=== PATIENT | female | born 1980 | race Caucasian/White ===

== ENCOUNTER 2017-10-10 11:11 | Emergency (ER) | payer OTHER ==
[2017-10-10 11:16] VITALS: BMI 31.2
[2017-10-10 11:17] VITALS: BP 114/67; RESP 18; O2SAT 98
--- NOTE | 2017-10-10 12:43 | ED PDOC ---
HPI: General Adult Time Seen by Provider: 10/10/17 11:41 Chief Complaint (Nursing): Flu-like Symptoms Chief Complaint (Provider): Cough, headache, left breast pain History Per: Patient History/Exam Limitations: no limitations Onset/Duration Of Symptoms: Days (3) Have you had recent travel within the past 21 days to any of the following countries: [place], [place], [place] or [place]?: No Current Symptoms Are (Timing): Still Present Additional History Per: Patient Additional Complaint(s): 37yo female, presents to ED with complaints of cough, headache and fever for the pas 3 days. Patient also reports she is breast feeding her 20 month old baby and is complaining of redness and pain to her left breast. She states she has an older child at home with common cold symptoms and feels she may have caught something from them. No other complaints. Past Medical History Reviewed: Historical Data, Nursing Documentation, Vital Signs Vital Signs: Last Vital Signs Temp 98.7 F 10/10/17 13:19 Pulse 116 H 10/10/17 11:16 Resp 18 10/10/17 11:16 BP 114/67 10/10/17 11:16 Pulse Ox 98 10/10/17 12:46 - Medical History PMH: Bronchitis Denies: Chronic Kidney Disease - Surgical History Surgical History: No Surg Hx - Family History Family History: States: No Known Family Hx, Unknown Family Hx - Home Medications Home Medications: Ambulatory Orders Medication Instructions Recorded Vit#96/Ferrous Fum/FA 1 tab PO DAILY 09/24/15 [] Famotidine [Pepcid] 20 mg PO BID #20 tab 04/27/16 Amoxicillin 875 mg PO BID #14 tab 10/10/17 - Allergies Allergies/Adverse Reactions: Allergies Allergy/AdvReac Type Severity Reaction Status Date / Time No Known Allergies Allergy Verified 10/10/17 11:42 Review of Systems ROS Statement: Except As Marked, All Systems Reviewed And Found Negative Constitutional: Positive for: Fever Respiratory: Positive for: Cough Musculoskeletal: Positive for: Other (left breast pain) Neurological: Positive for: Headache Physical Exam - Reviewed Nursing Documentation Reviewed: Yes Vital Signs Reviewed: Yes - Physical Exam Appears: Positive for: Non-toxic, Uncomfortable Head Exam: Positive for: ATRAUMATIC, NORMAL INSPECTION, NORMOCEPHALIC Skin: Positive for: Warm (febrile) Eye Exam: Positive for: Normal appearance ENT: Positive for: Pharyngeal Erythema Neck: Positive for: Supple Cardiovascular/Chest: Positive for: Regular Rate, Rhythm, Other (left breas medial aspect, radiating from areaola, a wedge shaped erythematous region with tenderness to touch; non-indurated.) Respiratory: Positive for: Normal Breath Sounds. Negative for: Respiratory Distress Gastrointestinal/Abdominal: Positive for: Soft. Negative for: Tenderness Neurologic/Psych: Positive for: Alert, Oriented - ECG O2 Sat by Pulse Oximetry: 98 (RA) Pulse Ox Interpretation: Normal Medical Decision Making Medical Decision Making: Time: 1158 Impression: URI, Mastitis Plan: -- Chest x-ray -- Throat culture -- Tylenol 975 mg PO Reassess Scribe Attestation: Documented by Shana Melvin acting as a scribe for Latrice Morrissey MD. Provider Attestation: All medical record entries made by the Scribe were at my direction and personally dictated by me. I have reviewed the chart and agree that the record accurately reflects my personal performance of the history, physical exam, medical decision making, and the department course for this patient. I have also personally directed, reviewed, and agree with the discharge instructions and disposition. Disposition - Clinical Impression Clinical Impression: Mastitis - Patient ED Disposition Is Patient to be Admitted: No Doctor Will See Patient In The: Office Counseled Patient/Family Regarding: Diagnosis, Need For Followup, Rx Given - Disposition Referrals: [facility] [Outside] [facility] [Outside] Disposition: Routine/Home Disposition Time: 13:24 Condition: STABLE Prescriptions: Amoxicillin 875 mg PO BID #14 tab Instructions: Mastitis (ED) Forms: [employer] (Slovenian), [facility] ED School/Work Excuse Print Language: MALAY - POA Present On Arrival: None
[2017-10-10 13:19] VITALS: TEMP 98.7
[2017-10-10 13:38] VITALS: PULSE 90
--- NOTE | 2017-10-10 15:47 | RAD ---
HISTORY: cough COMPARISON: No prior. TECHNIQUE: Chest PA and lateral FINDINGS: LUNGS: No active pulmonary disease. PLEURA: No significant pleural effusion identified. No pneumothorax apparent. CARDIOVASCULAR: Normal. OSSEOUS STRUCTURES: No significant abnormalities. VISUALIZED UPPER ABDOMEN: Normal. OTHER FINDINGS: None. IMPRESSION: No active disease.
== END 2017-10-10 13:52 | disposition home or self-care (01) ==
LOC: H.ER 11:11
DX: N64.4 Mastodynia (principal); J06.9 Acute upper respiratory infection, unspecified

== ENCOUNTER 2018-08-14 04:42 | Emergency (ER) | payer MEDICAID, OTHER ==
[2018-08-14 04:42] VITALS: BMI 31.2
--- NOTE | 2018-08-14 05:45 | ED PDOC ---
HPI: Abdomen Time Seen by Provider: 08/14/18 05:33 Chief Complaint (Nursing): Abdominal Pain Chief Complaint (Provider): abdominal pain History Per: Patient History/Exam Limitations: no limitations Onset/Duration Of Symptoms: Hrs (yesterday evening) Current Symptoms Are (Timing): Still Present Location Of Pain/Discomfort: Epigastric Quality Of Discomfort: Burning Associated Symptoms: denies: Fever, Chills, Urinary Symptoms Additional Complaint(s): Zandra Prater is a 38 year old female, with no significant past medical history, who presents to the emergency department complaining of constant non radiating epigastric pain onset since yesterday evening after she had pizza. Patient states she developed pain shortly after and reports having epigastric pain intermittently for several months, sometimes when she eats food. Patient also reports vomiting, non bloody and non bilious, intermittently and non bloody diarrhea which she has had for a long time. She denies any fever, chills, urina ry problems or bloody stools. Patient hasn't seen a doctor or specialist for this pain stating she comes to ED whenever she has pain. When asked if she has a PMD she reports a doctor in the ER. PMD: None Past Medical History Reviewed: Historical Data, Nursing Documentation, Vital Signs Vital Signs: Last Vital Signs Temp 98.7 F 08/14/18 05:02 Pulse 60 08/14/18 05:02 Resp 14 08/14/18 05:02 BP 103/66 08/14/18 05:02 Pulse Ox 99 08/14/18 05:02 - Medical History PMH: No Chronic Diseases, Bronchitis Denies: Chronic Kidney Disease - Surgical History Surgical History: No Surg Hx - Family History Family History: States: Unknown Family Hx - Social History Alcohol: None - Home Medications Home Medications: Ambulatory Orders Medication Instructions Recorded Vits96/Iron Fum/Folic 1 tab PO DAILY 09/24/15 [] Famotidine [Pepcid] 20 mg PO BID #20 tab 04/27/16 RX: Amoxicillin 875 mg PO BID #14 tab 10/10/17 Famotidine [Pepcid] 20 mg PO BID #28 tab 08/14/18 - Allergies Allergies/Adverse Reactions: Allergies Allergy/AdvReac Type Severity Reaction Status Date / Time No Known Allergies Allergy Verified 10/10/17 11:42 Review of Systems ROS Statement: Except As Marked, All Systems Reviewed And Found Negative Constitutional: Negative for: Fever, Chills Gastrointestinal: Positive for: Vomiting, Abdominal Pain (epigastric), Diarrhea. Negative for: Hematochezia Genitourinary Female: Negative for: Dysuria, Frequency, Hematuria, Vaginal Discharge, Vaginal Bleeding Physical Exam - Reviewed Nursing Documentation Reviewed: Yes Vital Signs Reviewed: Yes - Physical Exam Appears: Positive for: No Acute Distress Head Exam: Positive for: ATRAUMATIC, NORMAL INSPECTION, NORMOCEPHALIC Skin: Positive for: Normal Color, Warm, Dry Eye Exam: Positive for: Normal appearance, EOMI, PERRL Neck: Positive for: Painless ROM Cardiovascular/Chest: Positive for: Regular Rate, Rhythm. Negative for: Murmur Respiratory: Positive for: Normal Breath Sounds. Negative for: Respiratory Distress Gastrointestinal/Abdominal: Positive for: Tenderness (epigastric). Negative for: Distended Back: Positive for: Normal Inspection. Negative for: Vertebral Tenderness Extremity: Positive for: Normal ROM (upper and lower extremities). Negative for: Deformity, Swelling Neurologic/Psych: Positive for: Alert, Oriented - Laboratory Results Result Diagrams: 08/14/18 06:25 08/14/18 06:25 - ECG O2 Sat by Pulse Oximetry: 99 (RA) Pulse Ox Interpretation: Normal Medical Decision Making Medical Decision Making: Time: 05:33 Initial Impression: Abdominal pain with vomiting and diarrhea. Differential diagnosis includes gastritis, peptic ulcer disease, gallbladder disease, gastroenteritis, colitis and other conditions not listed. Initial Plan: --Abd & Pelvis IV Contrast [CT] --CMP --Lipase --Urine --Urine dipstick --CBC w/ differential --Lidocaine 2% Viscous 15 ml PO --Maalox Plus 30 ml PO --Pepcid 20 mg IVP --Reevaluation Scribe Attestation: Documented by Teddy Mckinney, acting as a scribe for Alee Luke MD. Provider Scribe Attestation: All medical record entries made by the Scribe were at my direction and personally dictated by me. I have reviewed the chart and agree that the record accurately reflects my personal performance of the history, physical exam, medical decision making, and the department course for this patient. I have also personally directed, reviewed, and agree with the discharge instructions and disposition. Disposition - Clinical Impression Clinical Impression: Gastritis, Cholelithiasis - Patient ED Disposition Is Patient to be Admitted: Transfer of Care Counseled Patient/Family Regarding: Studies Performed, Diagnosis, Need For Followup - Disposition Referrals: [facility] [Outside] [facility] [Outside] Disposition: Transfer of Care Disposition Time: 07:00 Condition: STABLE Prescriptions: Famotidine [Pepcid] 20 mg PO BID #28 tab Instructions: Gastritis, Gallstones Forms: [employer] (Guatemalan), [facility] ED School/Work Excuse Print Language: FRISIAN Patient Signed Over To: Hattie Santoyo
[2018-08-14] MEDS ORDERED: Alum-Mag Hydrox-Simethicone Susp (30 mL) PO ONE (05:48)
[2018-08-14] MEDS ORDERED: Alum-Mag Hydrox-Simethicone Susp (30 mL) ONE (05:57)
[2018-08-14 06:29] LABS: BASO % 0.5 % (0.0-2.0); EOS # 0.1 K/uL (0.0-0.7); EOS % 1.1 % (0.0-4.0); HEMOGLOBIN 13.5 g/dL (12.0-16.0); LYMPH # 2.5 K/uL (1.0-4.3); MEAN CELL VOLUME 91.1 fl (81.0-99.0); MEAN CORPUSCULAR HEMOGLOBIN 31.2 pg (27.0-31.0); MEAN CORPUSCULAR HGB CONC 34.2 g/dL (33.0-37.0); MEAN PLATELET VOLUME 8.2 fl (7.2-11.7); MONO # 0.6 K/uL (0.0-0.8); MONO % 6.1 % (0.0-10.0); NEUT # 6.3 K/uL (1.8-7.0); NEUT % 66.3 % (50.0-75.0); RBC 4.33 Mil/uL (3.80-5.20); RED CELL DISTRIBUTION WIDTH 13.2 % (11.5-14.5); WHITE BLOOD COUNT 9.5 K/uL (4.8-10.8)
[2018-08-14 06:39] LABS: ALB/GLOB RATIO 1.2 (1.0-2.1); ALBUMIN 4.6 g/dL (3.5-5.0); ALT/SGPT 28 U/L (9-52); AST/SGOT 27 U/L (14-36); BLOOD UREA NITROGEN 16 mg/dl (7-17); CALCIUM 9.5 mg/dL (8.4-10.2); GFR NON-AFRICAN AMERICAN > 60; LIPASE 182 U/L (23-300)
[2018-08-14] MEDS ORDERED: Iohexol 300 100 ML IJ ONE (07:36)
[2018-08-14] MEDS ORDERED: Sodium Chloride 0.9% 50 ML IV ONE (07:37)
--- NOTE | 2018-08-14 09:06 | CT ---
Date of service: 08/14/2018 PROCEDURE: CT Abdomen and Pelvis with contrast HISTORY: epigastric pain COMPARISON: Comparison is made with 04/27/2016 TECHNIQUE: Contrast dose: 100 mL of Omnipaque 300 intravenously. Axial and reformatted coronal and sagittal CT images of the abdomen and pelvis were obtained after IV contrast administration. Radiation dose: Total exam DLP = 344.65 mGy-cm. This CT exam was performed using one or more of the following dose reduction techniques: Automated exposure control, adjustment of the mA and/or kV according to patient size, and/or use of iterative reconstruction technique. FINDINGS: LOWER THORAX: Unremarkable. LIVER: Slight heterogeneous enhancement of the liver is noted. Mild hepatomegaly and mild hepatic steatosis is again noted. The portal vein is patent. GALLBLADDER AND BILE DUCTS: Tubal gallstones are noted without evidence of acute cholecystitis. The common bile duct is slightly prominent in size. PANCREAS: Unremarkable. No gross lesion or ductal dilatation. SPLEEN: Unremarkable. ADRENALS: Unremarkable. No mass. KIDNEYS AND URETERS: Unremarkable. No hydronephrosis. No solid mass. VASCULATURE: Unremarkable. No aortic aneurysm. BOWEL: Mild gastric wall thickening is noted. No evidence of high-grade bowel obstruction. APPENDIX: No evidence PERITONEUM: Of appendicitis. LYMPH NODES: Unremarkable. No enlarged lymph nodes. BLADDER: Unremarkable. REPRODUCTIVE: Unremarkable. BONES: No acute fracture. OTHER FINDINGS: None. IMPRESSION: Cholelithiasis without evidence of acute cholecystitis. Mild gastric mucosal thickening. No evidence of pancreatitis or appendicitis.
--- NOTE | 2018-08-14 09:58 | ED PDOC ---
- Laboratory Results Result Diagrams: 08/14/18 06:25 08/14/18 06:25 - ECG O2 Sat by Pulse Oximetry: 97 Medical Decision Making Medical Decision Making: received patient from Dr. Garcia. Patient is feeling better. CT-scan results reviewed and discussed with patient. She will initiate followup at the [facility]. Disposition Doctor Will See Patient In The: Office Counseled Patient/Family Regarding: Diagnosis, Need For Followup, Rx Given - Clinical Impression Clinical Impression: Gastritis, Cholelithiasis - POA Present On Arrival: None - Disposition Referrals: [facility] [Outside] [facility] [Outside] Disposition: Routine/Home Disposition Time: 09:30 Condition: IMPROVED Prescriptions: Famotidine [Pepcid] 20 mg PO BID #28 tab Instructions: Gastritis, Gallstones Forms: [employer] (Faroese) Print Language: GERMAN
[2018-08-14 10:14] VITALS: BP 105/58; PULSE 78; RESP 18; TEMP 98.6
[2018-08-15 20:12] VITALS: O2SAT 99
== END 2018-08-14 10:15 | disposition home or self-care (01) ==
LOC: H.ER 04:42
DX: K29.70 Gastritis, unspecified, without bleeding (principal); K80.20 Calculus of gallbladder without cholecystitis without obstruction
CPT/HCPCS: 74177; 80053; 81025; 83690; 85025; 96374; 99283; Q9967

== ENCOUNTER 2018-09-05 13:33 | Emergency (ER) | payer OTHER ==
[2018-09-05 13:33] VITALS: BMI 31.2
[2018-09-05 13:55] VITALS: RESP 16; O2SAT 99
[2018-09-05 16:28] LABS: BASO # 0.1 K/uL (0.0-0.2); BASO % 0.6 % (0.0-2.0); EOS # 0.1 K/uL (0.0-0.7); EOS % 0.7 % (0.0-4.0); HEMOGLOBIN 12.7 g/dL (12.0-16.0); LYMPH # 3.1 K/uL (1.0-4.3); LYMPH % 27.2 % (20.0-40.0); MEAN CELL VOLUME 90.3 fl (81.0-99.0); MEAN CORPUSCULAR HEMOGLOBIN 29.9 pg (27.0-31.0); MEAN CORPUSCULAR HGB CONC 33.1 g/dL (33.0-37.0); MEAN PLATELET VOLUME 7.8 fl (7.2-11.7); MONO # 0.7 K/uL (0.0-0.8); MONO % 5.9 % (0.0-10.0); NEUT # 7.6 K/uL (1.8-7.0); NEUT % 65.6 % (50.0-75.0); RBC 4.24 Mil/uL (3.80-5.20); RED CELL DISTRIBUTION WIDTH 13.1 % (11.5-14.5); WHITE BLOOD COUNT 11.6 K/uL (4.8-10.8)
[2018-09-05 16:38] LABS: SQUAMOUS EPITHIAL < 1 /hpf (0-5); URINE BACTERIA OCC (<OCC); URINE BILIRUBIN NEGATIVE (NEGATIVE); URINE CLARITY SLIGHTY-CLOUDY (Clear); URINE COLOR YELLOW (YELLOW); URINE GLUCOSE (UA) NEG (Normal); URINE LEUKOCYTE ESTERASE NEG Leu/uL (Negative); URINE PROTEIN NEGATIVE (NEGATIVE); URINE UROBILINOGEN 0.2-1.0 mg/dL (0.2-1.0)
[2018-09-05 16:39] LABS: ALB/GLOB RATIO 1.3 (1.0-2.1)
[2018-09-05 16:40] LABS: ALBUMIN 4.7 g/dL (3.5-5.0); ALT/SGPT 24 U/L (9-52); AST/SGOT 25 U/L (14-36); BLOOD UREA NITROGEN 14 mg/dl (7-17); CALCIUM 9.4 mg/dL (8.4-10.2); GFR NON-AFRICAN AMERICAN > 60
[2018-09-05 16:43] LABS: URINE BLOOD SMALL (NEGATIVE)
--- NOTE | 2018-09-05 17:14 | ED PDOC ---
HPI: Female Pain Time Seen by Provider: 09/05/18 14:44 Chief Complaint (Nursing): Female Genitourinary Chief Complaint (Provider): Female Genitourinary History Per: Patient History/Exam Limitations: no limitations Onset/Duration Of Symptoms: Other (x2 weeks) Additional Complaint(s): 38 year old female, with a past medical history of left ovarian dermoid cyst and is , presents to the ED after clinic visit for left lower quadrant abdominal pain. Patient states she had constant lower abdominal pain for the past 2 weeks. (+) dysuria, urinary frequency, malodorous vaginal discharge, mild dyspareunia. (-) nausea, vomiting, diarrhea. States she has 1 partner who is her . Patient reports she went to the clinic to follow up for a prior ED visit for epigastric pain. A pelvic exam was performed and was told she had a "mass" so needed to go to the ER for further evaluation. She was also told that she appeared to have an infection that needed antibiotics. Per review of clinic visit note, pelvic exam was performed and showed a small amount of slightly yellow discharge in the vagina with thin white discharge in cervix and a left adnexal mass distinct on exam and no tenderness on the right. She was referred to ED for further evaluation of possible tubo-ovarian abscess and treatment of possible pelvic inflammatory disease. PMD: Gerald Hinson Past Medical History Reviewed: Historical Data, Nursing Documentation, Vital Signs Vital Signs: Last Vital Signs Temp 99.4 F 09/05/18 13:53 Pulse 72 09/05/18 13:53 Resp 16 09/05/18 13:53 BP 104/69 09/05/18 13:53 Pulse Ox 99 09/05/18 13:53 - Medical History PMH: Bronchitis Denies: Chronic Kidney Disease Other PMH: Left dermoid cyst - Surgical History Surgical History: No Surg Hx - Family History Family History: States: Unknown Family Hx - Home Medications Home Medications: Ambulatory Orders Medication Instructions Recorded Vits96/Iron Fum/Folic 1 tab PO DAILY 09/24/15 [] Famotidine [Pepcid] 20 mg PO BID #20 tab 04/27/16 Amoxicillin 875 mg PO BID #14 tab 10/10/17 Famotidine [Pepcid] 20 mg PO BID #28 tab 08/14/18 Azithromycin 1,000 mg PO QWK #2 tablet 09/05/18 metroNIDAZOLE 0.75% [Metrogel 1 ea TP DAILY 5 Days tube 09/05/18 Cream] - Allergies Allergies/Adverse Reactions: Allergies Allergy/AdvReac Type Severity Reaction Status Date / Time No Known Allergies Allergy Verified 09/05/18 13:53 Review of Systems ROS Statement: Except As Marked, All Systems Reviewed And Found Negative Gastrointestinal: Positive for: Abdominal Pain (Left lower). Negative for: Nausea, Vomiting, Diarrhea Genitourinary Female: Positive for: Dysuria, Frequency, Vaginal Discharge Physical Exam - Reviewed Nursing Documentation Reviewed: Yes Vital Signs Reviewed: Yes - Physical Exam Appears: Positive for: Non-toxic, No Acute Distress Head Exam: Positive for: ATRAUMATIC, NORMAL INSPECTION, NORMOCEPHALIC Skin: Positive for: Normal Color, Warm, Dry Eye Exam: Positive for: Normal appearance Neck: Positive for: Normal, Painless ROM Cardiovascular/Chest: Positive for: Regular Rate, Rhythm. Negative for: Murmur Respiratory: Positive for: Normal Breath Sounds. Negative for: Wheezing, Respiratory Distress Gastrointestinal/Abdominal: Positive for: Normal Exam, Soft. Negative for: Tenderness Pelvic Exam: Positive for: Other (Deferred as patient had pelvic exam today in clinic) Extremity: Positive for: Normal ROM Neurologic/Psych: Positive for: Alert, Oriented. Negative for: Motor/Sensory Deficits - Laboratory Results Result Diagrams: 09/05/18 16:22 09/05/18 16:22 - ECG O2 Sat by Pulse Oximetry: 99 (RA) Pulse Ox Interpretation: Normal Medical Decision Making Medical Decision Making: Initial Impression: Abdominal Pain Initial Plan: --CMP --ED urine --CBC --Urinalysis --Pelvis/transvaginal US to r/o ovarian abscess Scribe Attestation: Documented by Gómez Bennett acting as a scribe for Ashlye Lonnie-Jag PA. Provider Scribe Attestation: All medical record entries made by the Scribe were at my direction and personally dictated by me. I have reviewed the chart and agree that the record accurately reflects my personal performance of the history, physical exam, medical decision making, and the department course for this patient. I have also personally directed, reviewed, and agree with the discharge instructions and disposition. Pelvic ultrasound: LEft ovary is not noted c/w hx of LEft oophorectomy. Otherwise unremarkable study as above Urinalysis shows moderate nitrate but no LE. Urine culture ordered. Case d/w DRAFTER ASSISTANT given need for antibiotics and patient is currently exclusively . Patient to receive Rocephin 250mg IM x 1 and prescription for Azithromycin 1G PO weekly x 2 weeks as well as Metronidazole gel rather than PO. Disposition - Clinical Impression Clinical Impression: Pelvic inflammatory disease (PID), Bacterial vaginosis - Patient ED Disposition Is Patient to be Admitted: No Counseled Patient/Family Regarding: Studies Performed, Diagnosis, Need For Followup, Rx Given - Disposition Referrals: [facility] [Outside] Disposition: Routine/Home Disposition Time: 19:32 Condition: STABLE Additional Instructions: Refrain from sexual contact for the next 2 weeks. F/u with your primary care physician if symptoms worsen or persist despite therapy. Prescriptions: Azithromycin 1,000 mg PO QWK #2 tablet metroNIDAZOLE 0.75% [Metrogel Cream] 1 ea TP DAILY 5 Days tube Instructions: Pelvic Inflammatory Disease (DC) Forms: [employer] ([place]), [facility] ED School/Work Excuse Print Language: CHINESE
--- NOTE | 2018-09-05 18:37 | US ---
Date of service: 09/05/2018 HISTORY: L>R pelvic pain COMPARISON: CT abdomen pelvis with IV contrast performed 08/14/18 TECHNIQUE: Real-time transabdominal pelvic ultrasound was performed. In addition a transvaginal pelvic ultrasound was necessary to better depict pelvic anatomy. FINDINGS: UTERUS: Measures 7.5 x 4.1 x 3.0 cm. Anteverted. ENDOMETRIUM: Measures 4 mm in diameter. CERVIX: No cervical abnormality identified. RIGHT OVARY: Measures 2.4 x 2.5 x 1.1 cm. Blood flow is demonstrated. 6 mm follicle. LEFT OVARY: Left ovary is not identified. Provided history indicates left oophorectomy. FREE FLUID: No significant free fluid noted. OTHER FINDINGS: None. IMPRESSION: The left ovary is not identified consistent with provided history of oophorectomy. Otherwise unremarkable study as above.
[2018-09-05] MEDS ORDERED: cefTRIAXone (Rocephin) 250 mg Inj IM ONE (19:05)
[2018-09-05] MEDS ORDERED: cefTRIAXone (Rocephin) 250 mg Inj ONE (20:09)
[2018-09-05 20:25] VITALS: BP 138/81; PULSE 73; TEMP 98.7
== END 2018-09-05 20:20 | disposition home or self-care (01) ==
LOC: H.ER 13:33
DX: N73.9 Female pelvic inflammatory disease, unspecified (principal); B96.89 Other specified bacterial agents as the cause of diseases classified elsewhere; N76.0 Acute vaginitis; Z90.721 Acquired absence of ovaries, unilateral
CPT/HCPCS: 76830; 76856; 80053; 81003; 81025; 85025; 87086; 96372; 99283; J0696

== ENCOUNTER 2018-12-28 15:22 | Inpatient (IN) | payer OTHER ==
[2018-12-28 15:22] VITALS: BMI 31.2
--- NOTE | 2018-12-28 16:15 | ED PDOC ---
HPI: Abdomen Time Seen by Provider: 12/28/18 15:42 Chief Complaint (Nursing): Abdominal Pain Chief Complaint (Provider): Abdominal Pain History Per: Patient History/Exam Limitations: no limitations Onset/Duration Of Symptoms: Days (x3) Current Symptoms Are (Timing): Still Present Location Of Pain/Discomfort: RUQ, Epigastric Quality Of Discomfort: "Pain" Associated Symptoms: Fever (subjective), Chills, Nausea, Loss Of Appetite, Back Pain, Constipation (mild). denies: Vomiting Additional Complaint(s): 38 year old female who recently underwent cholecystectomyon 12/25/18 and is post op x3 days presents to the ED with abdominal pain. Patient reports that despite the surgery, pain is persistent and worsening. She described RUQ and epigastric pain that radiates to her back. Patient has no appetite and has been feeling subjective fevers, chills, body aches, nausea and mild constip ation. She denies any vomiting, black or bloody stools. Patient has been taking Tylenol with no relief. PMD: Clinic Past Medical History Reviewed: Historical Data, Nursing Documentation, Vital Signs Vital Signs: Last Vital Signs Temp 99.5 F 12/28/18 15:36 Pulse 88 12/28/18 15:36 Resp 16 12/28/18 15:36 BP 117/59 L 12/28/18 15:36 Pulse Ox 100 12/28/18 15:36 - Medical History PMH: Bronchitis, Gastritis, Gall Bladder Disease Denies: Chronic Kidney Disease - Surgical History Surgical History: Cholecystectomy (12/25/18 ) Other surgeries: left ovarian cyst resection - Family History Family History: States: Other Other Family History: leukemia - Social History Current smoker - smoking cessation education provided: No Ex-Smoker (has not smoked in the last 12 months): No Alcohol: None Drugs: Denies - Home Medications Home Medications: Ambulatory Orders Medication Instructions Recorded Acetaminophen [Tylenol] 650 mg PO Q6 PRN 12/28/18 Ibuprofen [Motrin Tab] 400 mg PO Q8 PRN 12/28/18 - Allergies Allergies/Adverse Reactions: Allergies Allergy/AdvReac Type Severity Reaction Status Date / Time No Known Allergies Allergy Verified 12/28/18 15:36 Review of Systems ROS Statement: Except As Marked, All Systems Reviewed And Found Negative Constitutional: Positive for: Fever (subjective), Chills Gastrointestinal: Positive for: Nausea, Abdominal Pain, Constipation (mild). Negative for: Vomiting, Hematochezia Musculoskeletal: Positive for: Back Pain Physical Exam - Reviewed Nursing Documentation Reviewed: Yes Vital Signs Reviewed: Yes - Physical Exam Appears: Positive for: In Acute Distress (painful) Head Exam: Positive for: ATRAUMATIC, NORMOCEPHALIC Skin: Positive for: Warm, Dry, Pallor Eye Exam: Positive for: EOMI, PERRL ENT: Positive for: Other (tacky mucous membranes) Neck: Positive for: Painless ROM, Supple Cardiovascular/Chest: Positive for: Regular Rate, Rhythm. Negative for: Murmur Respiratory: Positive for: Normal Breath Sounds. Negative for: Respiratory Distress Gastrointestinal/Abdominal: Positive for: Soft, Tenderness (RUQ and epigastric), Other (3 surgical scars RUQ, epigastric, and umbilical. Clean, dry, and intact with no erythema.). Negative for: Mass, Guarding, Rebound Back: Positive for: Normal Inspection. Negative for: L CVA Tenderness, R CVA Tenderness Extremity: Positive for: Normal ROM. Negative for: Deformity Lymphatic: Negative for: Adenopathy Neurologic/Psych: Positive for: Alert, Mood/Affect (normal mood and anxious affect). Negative for: Motor/Sensory Deficits - Laboratory Results Result Diagrams: 12/28/18 16:15 12/28/18 16:15 - ECG O2 Sat by Pulse Oximetry: 100 (RA) Pulse Ox Interpretation: Normal Medical Decision Making Medical Decision Making: Time: 1555 Impression: abdominal pain post cholecystectomy; post op day 3 Differential diagnoses include but are not limited to: abdominal abscess, sepsis, gastritis, and pancreatitis. Plan: --CMP --Lactic acid --LDH --Lipase --U preg --u dip --CBC --PTT --PT/INR --Morphine 4 mg IVP --Zofran 4 mg IVP --Blood culture Time: 1729 --residential sales executive, Soledad, called back, who reports that he needs to talk to his senior for recommendations on imaging. He will call back. Labs demonstrate m ardkedly deranged LFTs, CT scan ordered. Time: 1820 --Case discussed with certified ophthalmic surgical assistant. She recommends admission and US. Discussed with Dr. Garcia, hospitalist, for admission. Time: 1833 --Case discussed again with certified ophthalmic surgical assistant. Patient to be admitted to Dr. Joy, surgery service. Case discussed with ANSELMO Aquino. Scribe Attestation: Documented by Rose Bennett, acting as a scribe for Amy Metcalf MD. Provider Scribe Attestation: All medical record entries made by the Scribe were at my direction and personally dictated by me. I have reviewed the chart and agree that the record accurately reflects my personal performance of the history, physical exam, medical decision making, and the department course for this patient. I have also personally directed, reviewed, and agree with the discharge instructions and disposition. Disposition - Clinical Impression Clinical Impression: Abdominal pain, Cholangitis Counseled Patient/Family Regarding: Studies Performed, Diagnosis - Disposition Disposition Time: 18:00 Condition: FAIR - Pt Status Changed To: Hospital Disposition Of: Inpatient - Admit Certification Admit to Inpatient:: After my assessment, the patient will require hospitalization for at least two midnights. This is because of the severity of symptoms shown, intensity of services needed, and/or the medical risk in this patient being treated as an outpatient. - POA Present On Arrival: None
[2018-12-28] MEDS ORDERED: Morphine 4 MG/ML VIAL ONE (16:38)
[2018-12-28 17:07] LABS: BASO % 0.3 % (0.0-2.0); EOS # 0.2 K/uL (0.0-0.7); EOS % 2.2 % (0.0-4.0); HEMOGLOBIN 12.8 g/dL (12.0-16.0); MEAN CELL VOLUME 91.3 fl (81.0-99.0); MEAN CORPUSCULAR HEMOGLOBIN 30.9 pg (27.0-31.0); MEAN CORPUSCULAR HGB CONC 33.9 g/dL (33.0-37.0); MEAN PLATELET VOLUME 8.4 fl (7.2-11.7); MONO # 0.6 K/uL (0.0-0.8); NEUT # 5.5 K/uL (1.8-7.0); NEUT % 66.5 % (50.0-75.0); RBC 4.13 Mil/uL (3.80-5.20); WHITE BLOOD COUNT 8.3 K/uL (4.8-10.8)
[2018-12-28 17:12] LABS: INR 1.1; PROTHROMBIN TIME 12.8 Seconds (9.8-13.1)
[2018-12-28 17:15] LABS: PARTIAL THROMBOPLASTIN TIME 35.5 Seconds (25.6-37.1)
[2018-12-28 17:23] LABS: ALB/GLOB RATIO 1.3 (1.0-2.1); ALBUMIN 4.8 g/dL (3.5-5.0); ALT/SGPT 903 U/L (9-52); AST/SGOT 445 U/L (14-36); BLOOD UREA NITROGEN 11 mg/dl (7-17); CALCIUM 9.9 mg/dL (8.4-10.2); GFR NON-AFRICAN AMERICAN > 60; LIPASE 166 U/L (23-300)
[2018-12-28] MEDS ORDERED: Piperacillin/Tazobact 3.375 GM in Sodium Chloride 0.9% 100 ML IVPB STA (17:42)
[2018-12-28 17:47] LABS: SQUAMOUS EPITHIAL < 1 /hpf (0-5); URINE BILIRUBIN NEGATIVE (NEGATIVE); URINE BLOOD MODERATE (NEGATIVE); URINE CLARITY SLIGHTY-CLOUDY (Clear); URINE COLOR YELLOW (YELLOW); URINE GLUCOSE (UA) NEG (NEGATIVE); URINE LEUKOCYTE ESTERASE NEG Leu/uL (Negative); URINE PROTEIN NEGATIVE (NEGATIVE)
[2018-12-28] MEDS ORDERED: Sodium Chloride 0.9% 50 ML IV ONE (18:18)
[2018-12-28] MEDS ORDERED: Iohexol 300 100 ML IJ ONE (18:18)
[2018-12-28] MEDS ORDERED: Piperacillin/Tazobact 3.375 gm Inj IVPB ONE (18:20)
--- NOTE | 2018-12-28 19:10 | CT ---
Date of service: 12/28/2018 PROCEDURE: CT Abdomen and Pelvis with contrast HISTORY: pain and postop day 3 cholecystectomy COMPARISON: 12/25/2018 TECHNIQUE: Contrast dose: 90 mL Omnipaque 300 Radiation dose: Total exam DLP = 330.38 mGy-cm. This CT exam was performed using one or more of the following dose reduction techniques: Automated exposure control, adjustment of the mA and/or kV according to patient size, and/or use of iterative reconstruction technique. FINDINGS: LOWER THORAX: Bilateral dependent lower lobe subsegmental atelectasis. LIVER: Unremarkable. No gross lesion or ductal dilatation. GALLBLADDER AND BILE DUCTS: Status post cholecystectomy. Surgical clips in gallbladder fossa. Small amount of fluid/soft tissue density in the gallbladder fossa. Mild dilatation of the common bile duct up to approximately 9 mm diameter. This is increased when compared to the prior examination. In the distal common bile duct there are questionable tiny calculi appreciated. These can be seen on series 3, image 58 and 59 and on series 601, image 40. These may represent common duct stones. In addition, there is a tubular fluid collection seen in the jacky hepatis region containing several small calculi. This is seen on series 601, image 38 and series 3, image 48. This may represent a calculus within a cystic duct remnant. PANCREAS: Unremarkable. No gross lesion or ductal dilatation. SPLEEN: Unremarkable. ADRENALS: Unremarkable. No mass. KIDNEYS AND URETERS: Unremarkable. No hydronephrosis. No solid mass. VASCULATURE: Unremarkable. No aortic aneurysm. No aortic atherosclerotic calcification or mural plaque present. BOWEL: Unremarkable. No obstruction. No gross mural thickening. APPENDIX: Normal appendix. PERITONEUM: Small amount of fluid in cul-de-sac common nonspecific. No pneumoperitoneum. LYMPH NODES: Unremarkable. No enlarged lymph nodes. BLADDER: Unremarkable. REPRODUCTIVE: Normal uterus BONES: No acute fracture. OTHER FINDINGS: None. IMPRESSION: Mild dilatation of the common bile duct. Questionable tiny distal common bile duct calculi. Questionable calculus within a tubular fluid-filled structure in the jacky hepatis region. Possible calculus within the cystic duct remnant. Minimal fluid in cul-de-sac. No evidence of postoperative bile collection.
[2018-12-28] MEDS ORDERED: HYDROmorphone 0.5 mg/0.5 ml ISec IVP PRN (19:15)
[2018-12-28] MEDS: Lactated Ringer's 1,000 ML IV SCH (20:33)
--- NOTE | 2018-12-28 21:00 | CP.PCM.HP ---
<Delmy Sandhu - Last Filed: 12/28/18 21:02> History of Present Illness - History of Present Illness History of Present Illness: Surgery: Dr. Joy CC: abdominal pain HPI: Patient is a 38 y/o female who presents to the ER complaining of epigastric and RUQ abdominal pain that has been present since her surgery 3 days ago. Patient had undergone laparoscopic cholecystectomy on Monday 12/25 for acute cholecystitis. Patient states that the pain radiates to her right flank and is not relieved by tylenol. She reports associated nausea but denies vomiting. She states her appetite has been poor but can tolerate po intake. She reports chills and subjective fevers at home. She reports flatus but complains of hard stools and constipation. Denies tarry or bloody stools. PMH: cholelithiasis, gastritis PSH: Lap L. oopherectomy (01/2015), Lap criss 12/25/18 ALL: NKDA SocialHx: denies tobacco, etoh, drug use Present on Admission - Present on Admission Any Indicators Present on Admission: No Review of Systems - Constitutional Constitutional: Chills. absent: Anorexia - EENT Eyes: absent: Blind Spots, Blurred Vision Nose/Mouth/Throat: Neck Pain. absent: Throat Swelling - Cardiovascular Cardiovascular: Chest Pain. absent: Dyspnea - Respiratory Respiratory: absent: Cough, Chest Congestion - Gastrointestinal Gastrointestinal: Abdominal Pain, Bloating, Constipation, Excessive Flatus, Nausea. absent: Diarrhea, Hematemesis, Vomiting - Genitourinary Genitourinary: Flank Pain. absent: Change in Urinary Stream, Hematuria, Urinary Frequency, Urinary Urgency - Musculoskeletal Musculoskeletal: absent: Arthralgias, Deformity - Integumentary Integumentary: absent: Wounds, Jaundice - Neurological Neurological: absent: Tingling, Weakness - Endocrine Endocrine: absent: Polyphagia, Polyuria - Hematologic/Lymphatic Hematologic: absent: Easy Bleeding, Easy Bruising Past Patient History - Infectious Disease Hx of Infectious Diseases: None - Past Medical History & Family History Past Medical History?: Yes Past Family History: Reviewed and not pertinent - Past Social History Alcohol: None Drugs: Denies - CARDIAC Hx Cardiac Disorders: No - PULMONARY Hx Bronchitis: Yes - NEUROLOGICAL Hx Neurological Disorder: No - HEENT Hx HEENT Problems: No - RENAL Hx Chronic Kidney Disease: No - ENDOCRINE/METABOLIC Hx Endocrine Disorders: No - HEMATOLOGICAL/ONCOLOGICAL Hx Blood Disorders: No - INTEGUMENTARY Hx Dermatological Problems: No - MUSCULOSKELETAL/RHEUMATOLOGICAL Hx Musculoskeletal Disorders: No - GASTROINTESTINAL Hx Gall Bladder Disease: Yes Hx Gastritis: Yes - GENITOURINARY/GYNECOLOGICAL Hx Genitourinary Disorders: No - PSYCHIATRIC Hx Psychophysiologic Disorder: No Hx Substance Use: No - SURGICAL HISTORY Hx Cholecystectomy: Yes (12/25/18 ) - ANESTHESIA Hx Anesthesia: No Hx Anesthesia Reactions: No Hx Malignant Hyperthermia: No Meds Allergies/Adverse Reactions: Allergies Allergy/AdvReac Type Severity Reaction Status Date / Time No Known Allergies Allergy Verified 12/28/18 15:36 Physical Exam - Constitutional Appears: Non-toxic, No Acute Distress - Head Exam Head Exam: ATRAUMATIC, NORMOCEPHALIC - Eye Exam Eye Exam: EOMI, Normal appearance. absent: Scleral icterus - ENT Exam ENT Exam: Mucous Membranes Moist - Respiratory Exam Respiratory Exam: NORMAL BREATHING PATTERN. absent: Accessory Muscle Use - Cardiovascular Exam Cardiovascular Exam: REGULAR RHYTHM. absent: Tachycardia - GI/Abdominal Exam GI & Abdominal Exam: Soft, Tenderness (epigastric and RUQ, mild TTP ). absent: Distended, Guarding, Rebound, Rigid Additional comments: lap criss port site incision CDI with dermabond closure mild bruising at the umbilical port site most tenderness is appreciated with palpation of the abdomen at each incision - Rectal Exam Rectal Exam: Deferred - Extremities Exam Extremities exam: Negative for: calf tenderness, tenderness - Back Exam Back exam: tenderness. absent: paraspinal tenderness - Neurological Exam Neurological exam: Alert, Oriented x3 - Skin Skin Exam: Dry, Intact Results - Vital Signs Recent Vital Signs: Last Vital Signs Temp 98.7 F 12/28/18 19:45 Pulse 74 12/28/18 19:45 Resp 18 12/28/18 19:45 BP 109/67 12/28/18 19:45 Pulse Ox 100 12/28/18 19:45 - Labs Result Diagrams: 12/28/18 16:15 12/28/18 16:15 Labs: Laboratory Results - last 24 hr 12/28/18 12/28/18 12/28/18 16:15 16:15 16:15 WBC 8.3 RBC 4.13 Hgb 12.8 Hct 37.7 MCV 91.3 MCH 30.9 MCHC 33.9 RDW 13.0 Plt Count 313 MPV 8.4 Neut % (Auto) 66.5 Lymph % (Auto) 24.0 [place] % (Auto) 7.0 Eos % (Auto) 2.2 Baso % (Auto) 0.3 Neut # (Auto) 5.5 Lymph # (Auto) 2.0 [place] # (Auto) 0.6 Eos # (Auto) 0.2 Baso # (Auto) 0.0 PT INR APTT Sodium 140 Potassium 4.1 Chloride 99 Carbon Dioxide 25 Anion Gap 20 BUN 11 Creatinine 0.9 Est GFR ( Amer) > 60 Est GFR (Non-Af Amer) > 60 Random Glucose 111 H Lactic Acid 1.0 Calcium 9.9 Total Bilirubin 1.8 H AST 445 H D ALT 903 H D Alkaline Phosphatase 165 H D Lactate Dehydrogenase 1095 H Total Protein 8.7 H Albumin 4.8 Globulin 3.8 Albumin/Globulin Ratio 1.3 Lipase 166 Urine Color Urine Clarity Urine pH Ur Specific [place] Urine Protein Urine Glucose (UA) Urine Ketones Urine Blood Urine Nitrate Urine Bilirubin Urine Urobilinogen Ur Leukocyte Esterase Urine RBC (Auto) Urine Microscopic WBC Ur Squamous Epith Cells 12/28/18 12/28/18 16:15 17:15 WBC RBC Hgb Hct MCV MCH MCHC RDW Plt Count MPV Neut % (Auto) Lymph % (Auto) [place] % (Auto) Eos % (Auto) Baso % (Auto) Neut # (Auto) Lymph # (Auto) [place] # (Auto) Eos # (Auto) Baso # (Auto) PT 12.8 INR 1.1 APTT 35.5 Sodium Potassium Chloride Carbon Dioxide Anion Gap BUN Creatinine Est GFR ( Amer) Est GFR (Non-Af Amer) Random Glucose Lactic Acid Calcium Total Bilirubin AST ALT Alkaline Phosphatase Lactate Dehydrogenase Total Protein Albumin Globulin Albumin/Globulin Ratio Lipase Urine Color Yellow Urine Clarity Slighty-cloudy Urine pH 6.0 Ur Specific [place] 1.015 Urine Protein Negative Urine Glucose (UA) Neg Urine Ketones 20 Urine Blood Moderate Urine Nitrate Negative Urine Bilirubin Negative Urine Urobilinogen 2.0 H Ur Leukocyte Esterase Neg Urine RBC (Auto) 11 H Urine Microscopic WBC 2 Ur Squamous Epith Cells < 1 - Imaging and Cardiology CT scan - abdomen Status: Image reviewed by me, Report reviewed by me Additional comment: CT with possible distal CD stones and dilated CBD up to 9mm cystic duct clips in place no large fluid collection Assessment & Plan - Assessment and Plan (Free Text) Assessment: 38 y/o female with abdominal pain 2/2 choledocholithiasis s/p lap criss POD3 Plan: -will order MRCP to evaluate CBD and possible stones seen on CT scan -f/u final read of U/S -GI consult-Dr. Davies, will possibly be able to perform ERCP on 2 -am labs -NPO -IVFs -cont Zosyn -ok to ambulate -pepcid for GI ppx -SCDs for DVT ppx <JoyLava - Last Filed: 12/30/18 12:26> Results - Vital Signs Recent Vital Signs: Last Vital Signs Temp 97.7 F 12/30/18 10:30 Pulse 70 12/30/18 10:30 Resp 14 12/30/18 10:30 BP 119/67 12/30/18 10:30 Pulse Ox 100 12/30/18 10:30 - Labs Result Diagrams: 12/30/18 06:40 12/30/18 06:40 Labs: Laboratory Results - last 24 hr 12/30/18 12/30/18 06:40 06:40 WBC 10.1 RBC 3.64 L Hgb 11.2 L Hct 33.7 L MCV 92.6 MCH 30.8 MCHC 33.3 RDW 13.4 Plt Count 292 Sodium 139 Potassium 3.8 Chloride 98 Carbon Dioxide 21 L Anion Gap 24 H BUN 17 Creatinine 0.8 Est GFR ( Amer) > 60 Est GFR (Non-Af Amer) > 60 Random Glucose 79 Calcium 9.3 Phosphorus 3.7 Magnesium 1.8 Total Bilirubin 1.9 H AST 135 H D ALT 560 H D Alkaline Phosphatase 187 H Total Protein 7.9 Albumin 4.4 Globulin 3.5 Albumin/Globulin Ratio 1.2 Assessment & Plan - Assessment and Plan (Free Text) Plan: I personally saw and examined the patient with the resident staff and agree with the above assessment and plan. I personally reviewed the available diagnostic images and imaging reports. Readmit with retained CBD stone following lap criss. Plan as above.
[2018-12-28] MEDS: Piperacillin/Tazobact 4.5 GM in Sodium Chloride 0.9% 100 ML IVPB SCH (22:57)
[2018-12-29] MEDS: Piperacillin/Tazobact 4.5 GM in Sodium Chloride 0.9% 100 ML IVPB SCH ×4 (03:10→21:17)
[2018-12-29 07:12] LABS: BASO % 0.5 % (0.0-2.0); EOS # 0.3 K/uL (0.0-0.7); EOS % 3.9 % (0.0-4.0); HEMOGLOBIN 11.7 g/dL (12.0-16.0); LYMPH # 2.2 K/uL (1.0-4.3); LYMPH % 26.5 % (20.0-40.0); MEAN CELL VOLUME 91.6 fl (81.0-99.0); MEAN CORPUSCULAR HEMOGLOBIN 31.1 pg (27.0-31.0); MEAN CORPUSCULAR HGB CONC 33.9 g/dL (33.0-37.0); MEAN PLATELET VOLUME 8.2 fl (7.2-11.7); MONO # 0.6 K/uL (0.0-0.8); MONO % 7.4 % (0.0-10.0); NEUT # 5.2 K/uL (1.8-7.0); NEUT % 61.7 % (50.0-75.0); RBC 3.78 Mil/uL (3.80-5.20); RED CELL DISTRIBUTION WIDTH 13.2 % (11.5-14.5); WHITE BLOOD COUNT 8.4 K/uL (4.8-10.8)
[2018-12-29 07:29] LABS: ALB/GLOB RATIO 1.2 (1.0-2.1); ALBUMIN 4.2 g/dL (3.5-5.0); ALT/SGPT 727 U/L (9-52); AST/SGOT 271 U/L (14-36); BLOOD UREA NITROGEN 16 mg/dl (7-17); CALCIUM 9.4 mg/dL (8.4-10.2); GFR NON-AFRICAN AMERICAN > 60; LIPASE 213 U/L (23-300)
--- NOTE | 2018-12-29 08:27 | CP.PCM.PN ---
Subjective - Date & Time of Evaluation Date of Evaluation: 12/29/18 Time of Evaluation: 06:30 - Subjective Subjective: Patient seen and examined. Reports some epigastric tenderness. No acute events over night. Review of vitals is normal. Objective - Vital Signs/Intake and Output Vital Signs (last 24 hours): Temp Pulse Resp BP Pulse Ox 97.8 F 55 L 20 109/65 95 12/29/18 08:13 12/29/18 08:13 12/29/18 08:13 12/29/18 08:13 12/29/18 08:13 - Medications Medications: Current Medications Famotidine (Pepcid) 40 mg IVP DAILY [facility] Hydromorphone HCl (Dilaudid) 0.5 mg IVP Q4 PRN PRN Reason: Pain, moderate (4-7) Hydromorphone HCl (Dilaudid) 1 mg IVP Q6 PRN PRN Reason: Pain, severe (8-10) Last Admin: 12/29/18 07:05 Dose: 1 mg Lactated Ringer's (Lactated Ringer's) 1,000 mls @ 100 mls/hr IV .Q10H JEREMY Last Admin: 12/28/18 20:33 Dose: 100 mls/hr Piperacillin Sod/Tazobactam (Sod 4.5 gm/ Sodium Chloride) 100 mls @ 100 mls/hr IVPB Q6 JEREMY; Protocol Last Admin: 12/29/18 03:10 Dose: 100 mls/hr Ondansetron HCl (Zofran Inj) 4 mg IVP Q6 PRN PRN Reason: Nausea/Vomiting - Labs Labs: 12/29/18 06:25 12/29/18 06:25 PT 12.8 Seconds (9.8-13.1) 12/28/18 16:15 INR 1.1 12/28/18 16:15 APTT 35.5 Seconds (25.6-37.1) 12/28/18 16:15 - Constitutional Appears: Non-toxic, No Acute Distress - Eye Exam Eye Exam: EOMI, Normal appearance - ENT Exam ENT Exam: Mucous Membranes Moist - Respiratory Exam Respiratory Exam: NORMAL BREATHING PATTERN - Cardiovascular Exam Cardiovascular Exam: +S1, +S2 - GI/Abdominal Exam GI & Abdominal Exam: Soft, Tenderness. absent: Distended, Firm, Guarding, Rigid Additional comments: epigastric tenderness - Neurological Exam Neurological Exam: Alert, Awake, Oriented x3 - Psychiatric Exam Psychiatric exam: Normal Mood - Skin Skin Exam: Dry, Intact, Warm Assessment and Plan - Assessment and Plan (Free Text) Assessment: 38 y/o female with abdominal pain 2/2 choledocholithiasis s/p lap criss POD4 Plan: -f/u MRCP to evaluate CBD and possible stones seen on CT scan -GI consult-Dr. Davies, will perform ERCP on 12/30/18 -NPO -IVF -cont Zosyn -encourage ambulation -pepcid for GI ppx -SCDs for DVT ppx D/w Dr. Rufino Somers PGY3
--- NOTE | 2018-12-29 08:32 | US ---
Date of service: 12/28/2018 HISTORY: RUQ pain COMPARISON: CT abdomen and pelvis from 12/28/2018. TECHNIQUE: Grayscale imaging was. FINDINGS: LIVER: Measures 16.3 cm in length. Normal echogenicity of the liver parenchyma. No mass. No intrahepatic bile duct dilatation. GALLBLADDER: Surgically absent. COMMON BILE DUCT: Measures 13 mm. No stones. Moderate diffuse dilatation. PANCREAS: Unremarkable as visualized. No mass. No ductal dilatation. RIGHT KIDNEY: Measures 11.8 cm in length. Normal echogenicity. No calculus, mass, or hydronephrosis. AORTA: No aneurysmal dilatation. IVC: Unremarkable. OTHER FINDINGS: None . IMPRESSION: Moderate diffuse dilatation of the common bile duct without sonographic evidence for choledocholithiasis. Status cholecystectomy.
[2018-12-29] MEDS: Lactated Ringer's 1,000 ML IV SCH (09:00)
--- NOTE | 2018-12-29 15:29 | MRI ---
MRCP Indication: poss CBD stone Technique: Multiplanar, multisequence MR images of the abdomen were obtained, including heavily T2 weighted MRCP images of the biliary system. Rotating maximum intensity projection images of the biliary system were generated. A total of images were submitted for review. Comparison: Compared with Findings: Examination limited by motion artifact. The liver appears grossly unremarkable on this noncontrast examination. The patient is status postcholecystectomy with evidence of fluid in the gallbladder fossa. Common bile duct appears dilated measuring approximately 13 mm in diameter. No discrete filling defect appreciated on this study. There is no intrahepatic biliary ductal dilatation. The pancreatic duct appears within normal limits of caliber. No discrete filling defects are seen in the common bile duct or pancreatic duct. Limited visualization of the noncontrast adrenal glands, kidneys, spleen, and pancreas appear grossly unremarkable. No bulky abdominal lymphadenopathy is seen. No ascites. No acute osseous abnormality is detected. Impression: Examination limited by motion artifact. No discrete filling defects seen within the common bile duct which appears dilated to approximately 13 mm. Cholecystectomy with fluid in the gallbladder fossa.
--- NOTE | 2018-12-29 19:13 | CP.PCM.CON ---
History of Present Illness - History of Present Illness History of Present Illness: 38 yo female with recent lap criss on 12/25 admitted with epigastric/ RUQ abdominal pain and elevated LFTs. Review of Systems - Constitutional Constitutional: absent: Chills - EENT Eyes: absent: Blurred Vision Ears: absent: Decreased Hearing Nose/Mouth/Throat: absent: Epistaxis - Cardiovascular Cardiovascular: absent: Chest Pain - Respiratory Respiratory: absent: Cough - Gastrointestinal Gastrointestinal: As Per HPI - Genitourinary Genitourinary: absent: Change in Urinary Stream Past Patient History - Infectious Disease Hx of Infectious Diseases: None - Past Medical History & Family History Past Medical History?: Yes - Past Social History Smoking Status: Never Smoked - CARDIAC Hx Cardiac Disorders: No - PULMONARY Hx Bronchitis: Yes - NEUROLOGICAL Hx Neurological Disorder: No - HEENT Hx HEENT Problems: No - RENAL Hx Chronic Kidney Disease: No - ENDOCRINE/METABOLIC Hx Endocrine Disorders: No - HEMATOLOGICAL/ONCOLOGICAL Hx Blood Disorders: No - INTEGUMENTARY Hx Dermatological Problems: No - MUSCULOSKELETAL/RHEUMATOLOGICAL Hx Falls: No - GASTROINTESTINAL Hx Gall Bladder Disease: Yes Hx Gastritis: Yes - GENITOURINARY/GYNECOLOGICAL Hx Genitourinary Disorders: No - PSYCHIATRIC Hx Substance Use: No - SURGICAL HISTORY Hx Cholecystectomy: Yes (12/25/18 ) - ANESTHESIA Hx Anesthesia: No Hx Anesthesia Reactions: No Hx Malignant Hyperthermia: No Meds Allergies/Adverse Reactions: Allergies Allergy/AdvReac Type Severity Reaction Status Date / Time No Known Allergies Allergy Verified 12/28/18 15:36 - Medications Medications: Current Medications Famotidine (Pepcid) 40 mg IVP DAILY [facility] Last Admin: 12/29/18 09:25 Dose: 40 mg Hydromorphone HCl (Dilaudid) 0.5 mg IVP Q4 PRN PRN Reason: Pain, moderate (4-7) Last Admin: 12/29/18 14:10 Dose: 0.5 mg Hydromorphone HCl (Dilaudid) 1 mg IVP Q6 PRN PRN Reason: Pain, severe (8-10) Last Admin: 12/29/18 07:05 Dose: 1 mg Lactated Ringer's (Lactated Ringer's) 1,000 mls @ 100 mls/hr IV .Q10H [facility] Last Admin: 12/29/18 09:00 Dose: Not Given Piperacillin Sod/Tazobactam (Sod 4.5 gm/ Sodium Chloride) 100 mls @ 100 mls/hr IVPB Q6 [facility]; Protocol Last Admin: 12/29/18 17:11 Dose: 100 mls/hr Ondansetron HCl (Zofran Inj) 4 mg IVP Q6 PRN PRN Reason: Nausea/Vomiting Physical Exam - Constitutional Appears: No Acute Distress - Head Exam Head Exam: ATRAUMATIC - ENT Exam ENT Exam: Mucous Membranes Moist - Neck Exam Neck exam: Positive for: Normal Inspection - Respiratory Exam Respiratory Exam: Clear to Auscultation Bilateral - Cardiovascular Exam Cardiovascular Exam: REGULAR RHYTHM, +S1, +S2 - GI/Abdominal Exam GI & Abdominal Exam: Normal Bowel Sounds, Soft, Tenderness Results - Vital Signs Recent Vital Signs: Last Vital Signs Temp 99.7 F H 12/29/18 15:40 Pulse 88 12/29/18 15:40 Resp 20 12/29/18 15:40 BP 96/60 L 12/29/18 15:40 Pulse Ox 94 L 12/29/18 15:40 - Labs Result Diagrams: 12/29/18 06:25 12/29/18 06:25 Labs: Laboratory Results - last 24 hr 12/29/18 12/29/18 06:25 06:25 WBC 8.4 RBC 3.78 L Hgb 11.7 L Hct 34.6 MCV 91.6 MCH 31.1 H MCHC 33.9 RDW 13.2 Plt Count 291 MPV 8.2 Neut % (Auto) 61.7 Lymph % (Auto) 26.5 [place] % (Auto) 7.4 Eos % (Auto) 3.9 Baso % (Auto) 0.5 Neut # (Auto) 5.2 Lymph # (Auto) 2.2 [place] # (Auto) 0.6 Eos # (Auto) 0.3 Baso # (Auto) 0.0 Sodium 139 Potassium 4.2 Chloride 101 Carbon Dioxide 24 Anion Gap 18 BUN 16 Creatinine 0.9 Est GFR ( Amer) > 60 Est GFR (Non-Af Amer) > 60 Random Glucose 71 Calcium 9.4 Phosphorus 4.9 H Magnesium 2.1 Total Bilirubin 2.2 H AST 271 H D ALT 727 H Alkaline Phosphatase 162 H Total Protein 7.7 Albumin 4.2 Globulin 3.5 Albumin/Globulin Ratio 1.2 Lipase 213 - Imaging and Cardiology CT scan - abdomen Status: Report reviewed by me MRI - abdomen Status: Image reviewed by me, Report reviewed by me Assessment & Plan (1) Abdominal pain Assessment and Plan: Patient with elevated LFTs and ongoing abdominal pain. CT shows possible small CBD stones and dilated CBD. Definite intraductal stones not seen on MRCP. Small stones and sludge may be missed on MRCP. Will proceed with ERCP tomorrow. Status: Acute
[2018-12-30] MEDS: Lactated Ringer's 1,000 ML IV SCH ×3 (01:30→21:30)
[2018-12-30] MEDS: Piperacillin/Tazobact 4.5 GM in Sodium Chloride 0.9% 100 ML IVPB SCH ×4 (03:49→21:01)
[2018-12-30] MEDS ORDERED: Iohexol 240 (50 ml) ONE (07:25)
[2018-12-30] MEDS ORDERED: Lactated Ringer's 500 ML IV ONE (07:34)
[2018-12-30 07:39] LABS: HEMOGLOBIN 11.2 g/dL (12.0-16.0); MEAN CELL VOLUME 92.6 fl (81.0-99.0); MEAN CORPUSCULAR HEMOGLOBIN 30.8 pg (27.0-31.0); MEAN CORPUSCULAR HGB CONC 33.3 g/dL (33.0-37.0); RBC 3.64 Mil/uL (3.80-5.20); RED CELL DISTRIBUTION WIDTH 13.4 % (11.5-14.5); WHITE BLOOD COUNT 10.1 K/uL (4.8-10.8)
[2018-12-30] MEDS ORDERED: EPINEPHrine 1 mg/ml (1:1000) Inj ONE (07:43)
[2018-12-30] MEDS ORDERED: Indomethacin 50 MG Suppository PR ONE ×3 (07:43→08:45)
[2018-12-30] MEDS ORDERED: Glucagon Recombinant 1 mg Inj ONE (07:43)
[2018-12-30] MEDS ORDERED: Propofol 10 mg/ml Inj (20 ML) ONE (07:46)
[2018-12-30] MEDS ORDERED: Succinylcholine Chloride 20 mg/ml Syr (5 ml) IV ONE (07:47)
[2018-12-30 07:55] LABS: ALB/GLOB RATIO 1.2 (1.0-2.1); ALBUMIN 4.4 g/dL (3.5-5.0); ALT/SGPT 560 U/L (9-52); AST/SGOT 135 U/L (14-36); BLOOD UREA NITROGEN 17 mg/dl (7-17); CALCIUM 9.3 mg/dL (8.4-10.2); GFR NON-AFRICAN AMERICAN > 60
[2018-12-30] MEDS ORDERED: Sevoflurane - Inhalation Anesthetic Liq (250 ml) ONE (08:00)
[2018-12-30] MEDS ORDERED: ePHEDrine 50 mg/ml Inj ONE (08:52)
--- NOTE | 2018-12-30 11:26 | CP.PCM.PN ---
<Pk Huang - Last Filed: 12/30/18 11:41> Subjective - Date & Time of Evaluation Date of Evaluation: 12/30/18 Time of Evaluation: 11:41 - Subjective Subjective: General Surgery Note for Dr. Joy Patient seen and examined at bedside. No acute event overnihgt. Patient is NPO for ERCP today with Dr. Davies. Patient reports some mild epigastric tenderness. Denies fever/chills, CP, SOB, vomiting, diarrhea, constipation, u rinary symptoms. Objective - Vital Signs/Intake and Output Vital Signs (last 24 hours): Temp Pulse Resp BP Pulse Ox 97.7 F 70 14 119/67 100 12/30/18 10:30 12/30/18 10:30 12/30/18 10:30 12/30/18 10:30 12/30/18 10:30 Intake and Output: 12/30/18 12/30/18 06:59 18:59 Intake Total 500 Balance 500 - Medications Medications: Current Medications Famotidine (Pepcid) 40 mg IVP DAILY [facility] Last Admin: 12/29/18 09:25 Dose: 40 mg Lactated Ringer's (Lactated Ringer's) 1,000 mls @ 100 mls/hr IV .Q10H [facility] Last Admin: 12/30/18 01:30 Dose: 100 mls/hr Piperacillin Sod/Tazobactam (Sod 4.5 gm/ Sodium Chloride) 100 mls @ 100 mls/hr IVPB Q6 [facility]; Protocol Stop: 12/30/18 22:59 Last Admin: 12/30/18 03:49 Dose: 100 mls/hr Ondansetron HCl (Zofran Inj) 4 mg IVP Q6 PRN PRN Reason: Nausea/Vomiting Ondansetron HCl (Zofran Inj) 4 mg IVP ONCE PRN PRN Reason: Nausea/Vomiting Stop: 12/30/18 11:48 - Labs Labs: 12/30/18 06:40 12/30/18 06:40 PT 12.8 Seconds (9.8-13.1) 12/28/18 16:15 INR 1.1 12/28/18 16:15 APTT 35.5 Seconds (25.6-37.1) 12/28/18 16:15 Assessment and Plan - Assessment and Plan (Free Text) Assessment: 38 F with abdominal pain secondary to choledocholithiasis; s/p lap cholecystectomy POD#5 Plan: -GI consult, Dr. Davies, s/p ERCP today 12/30 - sphincterotomy/papillotomy and stent, sludge removed -ADAT -Discontinue narcotics -cont Zosyn for 3 more doses -repeat Labs in AM 3/2 -encourage ambulation -pepcid for GI ppx -SCDs for DVT ppx -Discussed with Dr. Rufino Huang PGY2 <Shane Joy - Last Filed: 12/30/18 12:23> Objective - Vital Signs/Intake and Output Vital Signs (last 24 hours): Temp Pulse Resp BP Pulse Ox 97.7 F 70 14 119/67 100 12/30/18 10:30 12/30/18 10:30 12/30/18 10:30 12/30/18 10:30 12/30/18 10:30 Intake and Output: 12/30/18 12/30/18 06:59 18:59 Intake Total 500 Balance 500 - Medications Medications: Current Medications Famotidine (Pepcid) 40 mg IVP DAILY [facility] Last Admin: 12/29/18 09:25 Dose: 40 mg Lactated Ringer's (Lactated Ringer's) 1,000 mls @ 100 mls/hr IV .Q10H [facility] Last Admin: 12/30/18 01:30 Dose: 100 mls/hr Piperacillin Sod/Tazobactam (Sod 4.5 gm/ Sodium Chloride) 100 mls @ 100 mls/hr IVPB Q6 [facility]; Protocol Stop: 12/30/18 22:59 Last Admin: 12/30/18 03:49 Dose: 100 mls/hr Ondansetron HCl (Zofran Inj) 4 mg IVP Q6 PRN PRN Reason: Nausea/Vomiting - Labs Labs: 12/30/18 06:40 12/30/18 06:40 PT 12.8 Seconds (9.8-13.1) 12/28/18 16:15 INR 1.1 12/28/18 16:15 APTT 35.5 Seconds (25.6-37.1) 12/28/18 16:15 Assessment and Plan - Assessment and Plan (Free Text) Plan: I personally saw and examined the patient with the resident staff and agree with the above assessment and plan. I personally reviewed the available diagnostic images and imaging reports. 38 F readmit for retained stone following lap criss s/p ERCP sphincterotomy and evacuation of sludge. Clinically improved no tenderness. Advance diet. repeat LFTs in am.
[2018-12-31] MEDS: Piperacillin/Tazobact 4.5 GM in Sodium Chloride 0.9% 100 ML IVPB SCH (04:27)
[2018-12-31] MEDS: Lactated Ringer's 1,000 ML IV SCH (04:29)
[2018-12-31 06:38] LABS: ALB/GLOB RATIO 1.2 (1.0-2.1); ALBUMIN 3.9 g/dL (3.5-5.0); ALT/SGPT 384 U/L (9-52); AST/SGOT 63 U/L (14-36); BLOOD UREA NITROGEN 12 mg/dl (7-17); CALCIUM 9.2 mg/dL (8.4-10.2); GFR NON-AFRICAN AMERICAN > 60
[2018-12-31 08:14] VITALS: BP 101/60; PULSE 75; RESP 20; TEMP 98.1; O2SAT 94
--- NOTE | 2018-12-31 09:29 | CP.PCM.PN ---
Subjective - Date & Time of Evaluation Date of Evaluation: 12/31/18 Time of Evaluation: 06:00 - Subjective Subjective: General Surgery Progress Note for Dr. Joy This 38F was seen and examined at bedside. No acute event overnight. Patient tolerated clears. Denies abdominal pain or tenderness. Denies fever/chills, CP, SOB, vomiting, diarrhea, constipation, urinary symptoms. No new complaints at this time. Objective - Vital Signs/Intake and Output Vital Signs (last 24 hours): Temp Pulse Resp BP Pulse Ox 98.1 F 75 20 101/60 94 L 12/31/18 08:13 12/31/18 08:13 12/31/18 08:13 12/31/18 08:13 12/31/18 08:13 - Medications Medications: Current Medications Famotidine (Pepcid) 40 mg IVP DAILY [facility] Last Admin: 12/30/18 10:00 Dose: Not Given Lactated Ringer's (Lactated Ringer's) 1,000 mls @ 100 mls/hr IV .Q10H [facility] Last Admin: 12/31/18 04:29 Dose: 100 mls/hr Ondansetron HCl (Zofran Inj) 4 mg IVP Q6 PRN PRN Reason: Nausea/Vomiting - Labs Labs: 12/30/18 06:40 12/31/18 04:35 PT 12.8 Seconds (9.8-13.1) 12/28/18 16:15 INR 1.1 12/28/18 16:15 APTT 35.5 Seconds (25.6-37.1) 12/28/18 16:15 - Constitutional Appears: Non-toxic, No Acute Distress - Head Exam Head Exam: ATRAUMATIC, NORMOCEPHALIC - Eye Exam Eye Exam: EOMI, Normal appearance - ENT Exam ENT Exam: Mucous Membranes Moist - Respiratory Exam Respiratory Exam: NORMAL BREATHING PATTERN - Cardiovascular Exam Cardiovascular Exam: +S1, +S2 - GI/Abdominal Exam GI & Abdominal Exam: Soft. absent: Distended, Firm, Rigid, Tenderness - Neurological Exam Neurological Exam: Alert, Awake - Psychiatric Exam Psychiatric exam: Normal Affect, Normal Mood - Skin Skin Exam: Dry, Intact Assessment and Plan - Assessment and Plan (Free Text) Assessment: 38 F with abdominal pain secondary to choledocholithiasis; s/p lap cholecystectomy POD#6 T. Bili (1.9-->1.2) and LFTs down trending Plan: - ERCP yesterday with spinchterotomy and biliary stent placement - Will consider advancing diet. - encourage ambulation - pepcid for GI ppx - SCDs for DVT ppx Further recs per Dr. Rufino Shannon PGY3
--- NOTE | 2018-12-31 12:00 | CP.PCM.DIS ---
Provider - Provider Date of Admission: 12/28/18 18:19 Attending physician: Shane Joy MD Primary care physician: General surgery- Dr. Joy Consults: 12/28/18 19:10 Gastroenterology Consult Stat Comment: Consulting Provider: Gerald Davies Consulting Physician: Gerald Davies Reason for Consult: elevated LFTs Time Spent in preparation of Discharge (in minutes): 35 Hospital Course - Lab Results Lab Results: Micro Results 12/28/18 16:15 Blood-Venous Blood Culture - Preliminary NO GROWTH AFTER 48 HOURS 12/28/18 16:00 Blood-Venous Blood Culture - Preliminary NO GROWTH AFTER 48 HOURS 12/28/18 17:15 Urine Random Urine Culture - Final No Growth (<1,000 CFU/ML) Most Recent Lab Values WBC 10.1 K/uL (4.8-10.8) 12/30/18 06:40 RBC 3.64 Mil/uL (3.80-5.20) L 12/30/18 06:40 Hgb 11.2 g/dL (12.0-16.0) L 12/30/18 06:40 Hct 33.7 % (34.0-47.0) L 12/30/18 06:40 MCV 92.6 fl (81.0-99.0) 12/30/18 06:40 MCH 30.8 pg (27.0-31.0) 12/30/18 06:40 MCHC 33.3 g/dL (33.0-37.0) 12/30/18 06:40 RDW 13.4 % (11.5-14.5) 12/30/18 06:40 Plt Count 292 K/uL (130-400) 12/30/18 06:40 MPV 8.2 fl (7.2-11.7) 12/29/18 06:25 Neut % (Auto) 61.7 % (50.0-75.0) 12/29/18 06:25 Lymph % (Auto) 26.5 % (20.0-40.0) 12/29/18 06:25 [place] % (Auto) 7.4 % (0.0-10.0) 12/29/18 06:25 Eos % (Auto) 3.9 % (0.0-4.0) 12/29/18 06:25 Baso % (Auto) 0.5 % (0.0-2.0) 12/29/18 06:25 Neut # (Auto) 5.2 K/uL (1.8-7.0) 12/29/18 06:25 Lymph # (Auto) 2.2 K/uL (1.0-4.3) 12/29/18 06:25 [place] # (Auto) 0.6 K/uL (0.0-0.8) 12/29/18 06:25 Eos # (Auto) 0.3 K/uL (0.0-0.7) 12/29/18 06:25 Baso # (Auto) 0.0 K/uL (0.0-0.2) 12/29/18 06:25 PT 12.8 Seconds (9.8-13.1) 12/28/18 16:15 INR 1.1 12/28/18 16:15 APTT 35.5 Seconds (25.6-37.1) 12/28/18 16:15 Sodium 139 mmol/l (132-148) 12/31/18 04:35 Potassium 4.1 MMOL/L (3.6-5.0) 12/31/18 04:35 Chloride 101 mmol/L (98-107) 12/31/18 04:35 Carbon Dioxide 26 mmol/L (22-30) 12/31/18 04:35 Anion Gap 16 (10-20) 12/31/18 04:35 BUN 12 mg/dl (7-17) 12/31/18 04:35 Creatinine 0.8 mg/dl (0.7-1.2) 12/31/18 04:35 Est GFR ( Amer) > 60 12/31/18 04:35 Est GFR (Non-Af Amer) > 60 12/31/18 04:35 Random Glucose 111 mg/dL (65-105) H 12/31/18 04:35 Lactic Acid 1.0 mmol/L (0.7-2.1) 12/28/18 16:15 Calcium 9.2 mg/dL (8.4-10.2) 12/31/18 04:35 Phosphorus 3.0 mg/dl (2.5-4.5) 12/31/18 04:35 Magnesium 1.9 MG/DL (1.6-2.3) 12/31/18 04:35 Total Bilirubin 1.2 mg/dl (0.2-1.3) 12/31/18 04:35 AST 63 U/L (14-36) H D 12/31/18 04:35 ALT 384 U/L (9-52) H D 12/31/18 04:35 Alkaline Phosphatase 144 U/L (38-126) H D 12/31/18 04:35 Lactate Dehydrogenase 1095 U/L (313-618) H 12/28/18 16:15 Total Protein 7.0 G/DL (6.3-8.2) 12/31/18 04:35 Albumin 3.9 g/dL (3.5-5.0) 12/31/18 04:35 Globulin 3.1 gm/dL (2.2-3.9) 12/31/18 04:35 Albumin/Globulin Ratio 1.2 (1.0-2.1) 12/31/18 04:35 Lipase 213 U/L (23-300) 12/29/18 06:25 Urine Color Yellow (YELLOW) 12/28/18 17:15 Urine Clarity Slighty-cloudy (Clear) 12/28/18 17:15 Urine pH 6.0 (5.0-8.0) 12/28/18 17:15 Ur Specific [place] 1.015 (1.003-1.030) 12/28/18 17:15 Urine Protein Negative mg/dL (NEGATIVE) 12/28/18 17:15 Urine Glucose (UA) Neg mg/dL (NEGATIVE) 12/28/18 17:15 Urine Ketones 20 mg/dL (NEGATIVE) 12/28/18 17:15 Urine Blood Moderate (NEGATIVE) 12/28/18 17:15 Urine Nitrate Negative (NEGATIVE) 12/28/18 17:15 Urine Bilirubin Negative (NEGATIVE) 12/28/18 17:15 Urine Urobilinogen 2.0 mg/dL (0.2-1.0) H 12/28/18 17:15 Ur Leukocyte Esterase Neg Bony/uL (Negative) 12/28/18 17:15 Urine RBC (Auto) 11 /hpf (0-3) H 12/28/18 17:15 Urine Microscopic WBC 2 /hpf (0-5) 02/27/19 17:15 Ur Squamous Epith Cells < 1 /hpf (0-5) 12/28/18 17:15 - Hospital Course Hospital Course: Patient is a 38 y/o female who presents to the ER complaining of epigastric and RUQ abdominal pain that has been present since her surgery 3 days ago. Patient had undergone laparoscopic cholecystectomy on Monday 12/25 for acute cholecystitis. Patient states that the pain radiates to her right flank and is not relieved by tylenol. She reports associated nausea but denies vomiting. She states her appetite has been poor but can tolerate po intake. She reports chills and subjective fevers at home. She reports flatus but complains of hard stools and constipation. Denies tarry or bloody stools. Pt seen/evaluated by GI - performed ERCP for retained stone. Pt tolerated procedure well, no complications. Patient monitored post intervention with resolution of abdominal pain. Pt monitored for diet tolerance- pt tolerated low fat diet. Cleared for d/c home as per Dr. Joy. Diagnosis recent lap criss retained stone s/p ERCP - Date & Time of H&P Date of H&P: 01/25/19 Time of H&P: 20:55 Discharge Exam - Head Exam Head Exam: ATRAUMATIC, NORMAL INSPECTION, NORMOCEPHALIC - Eye Exam Eye Exam: EOMI, Normal appearance - ENT Exam ENT Exam: Mucous Membranes Moist, Normal Exam - Neck Exam Neck exam: Full Rom, Normal Inspection - Respiratory Exam Respiratory Exam: Clear to PA & Lateral, NORMAL BREATHING PATTERN, UNREMARKABLE. absent: Rales, Rhonchi, Wheezes, Respiratory Distress - Cardiovascular Exam Cardiovascular Exam: REGULAR RHYTHM, +S1, +S2 - GI/Abdominal Exam GI & Abdominal Exam: Normal Bowel Sounds, Soft, Tenderness (mild, over surgical incision sites), Unremarkable. absent: Diminished Bowel Sounds, Distended, Firm, Guarding, Rebound, Rigid - Extremities Exam Extremities exam: normal inspection - Neurological Exam Neurological exam: Alert, CN II-XII Intact, Oriented x3 - Psychiatric Exam Psychiatric exam: Normal Affect, Normal Mood - Skin Skin Exam: Dry, Intact, Normal Color, Warm Discharge Plan - Follow Up Plan Condition: STABLE Disposition: HOME/ ROUTINE Instructions: Cholecystectomy (DC), Cholecystectomy, Laparoscopic Surgery, Gallstones (DC), Acute Abdominal Pain (DC), Acute Abdominal Pain (GEN) Additional Instructions: Please follow up with Dr. Shane Joy in 1 week after discharge from hospital Ok to eat a low fat diet Please follow up with Dr. Davies in his office in 1 week after discharge from hospital No heavy lifting for 4-6 weeks Ok to shower, washing surgical sites gently with soap and water Do not take a bath or sit in water for 4-6 weeks Referrals: Shane Joy MD [Staff Provider] - Gerald Davies MD [Staff Provider] -
--- NOTE | 2019-01-02 16:16 | RAD ---
Date of service: 12/30/2018 PROCEDURE: Intraoperative Fluoroscopy. HISTORY: ERCP FINDINGS: Fluoroscopic assistance was provided for ERCP. Please refer to the operative report from MATHEW Zamora. Total fluoroscopic time (continuous mode) utilized during the procedure 146.8 seconds. Total exam DLP: 22.72 (mGy). Submitted images from the current procedure: 3.0
== END 2018-12-31 14:17 | disposition home or self-care (01) | DRG 252 ==
LOC: H.ER 15:22 → H.ERHOLD 18:19 → H.MEDSURG1 21:45
PROVIDERS: ADMIT Surgery; ATTEND Surgery
PROC: 0F7D8DZ Dilation of Pancreatic Duct with Intraluminal Device, Via Natural or Artificial Opening Endoscopic (ICD-10-PCS; 2018-12-30)
PROC: 0F798DZ Dilation of Common Bile Duct with Intraluminal Device, Via Natural or Artificial Opening Endoscopic (ICD-10-PCS; principal; 2018-12-30 08:00)
DX: K91.86 Retained cholelithiasis following cholecystectomy (principal); J40 Bronchitis, not specified as acute or chronic; Y84.9 Medical procedure, unspecified as the cause of abnormal reaction of the patient, or of later complication, without mention of misadventure at the time of the procedure; Y92.9 Unspecified place or not applicable; K59.00 Constipation, unspecified; Z80.6 Family history of leukemia; Z90.49 Acquired absence of other specified parts of digestive tract; K29.70 Gastritis, unspecified, without bleeding; R50.9 Fever, unspecified

== ENCOUNTER 2019-02-05 12:44 | Emergency (ER) | payer OTHER ==
[2019-02-05 12:44] VITALS: BMI 31.2
[2019-02-05] MEDS ORDERED: Iohexol 240 (50 ml) PO STA (13:32)
--- NOTE | 2019-02-05 13:45 | ED PDOC ---
HPI: Abdomen Time Seen by Provider: 02/05/19 13:00 Chief Complaint (Nursing): Abdominal Pain Chief Complaint (Provider): Abd Pain History Per: Patient History/Exam Limitations: no limitations Onset/Duration Of Symptoms: Days Outside of [place] travel?: No Current Symptoms Are (Timing): Still Present Severity: Moderate Pain Scale Rating Of: 6 Location Of Pain/Discomfort: Epigastric, LUQ Quality Of Discomfort: "Pain" Associated Symptoms: Nausea, Vomiting, Diarrhea (x1 ). denies: Loss Of Appetite Exacerbating Factors: Food Additional History Per: Patient Additional Complaint(s): 38 y/o female, s/p cholecystectomy in 12/2018., c/o epigastric abdominal pain, nausea, vomiting, and one episode of diarrhea. Patient states 2 weeks ago having "pulsating" discomfort to left upper quad, 2-3 episodes a week. Today after eating "rib soup" LUQ pain increased with associated n/v/diaphoresis and one episode of diarrhea. She states she took mylanta with minimal improvement. Lesli ent denies chest pain, sob, fever. Past Medical History Reviewed: Historical Data, Nursing Documentation, Vital Signs Vital Signs: Last Vital Signs Temp 97.8 F 02/05/19 12:46 Pulse 83 02/05/19 12:46 Resp 19 02/05/19 12:46 BP 124/77 02/05/19 12:46 Pulse Ox 97 02/05/19 12:46 GERARD Report Viewed: No - Medical History PMH: No Chronic Diseases, Bronchitis, Gastritis, Gall Bladder Disease Denies: Chronic Kidney Disease - Surgical History Surgical History: Cholecystectomy (12/25/18 ) - Family History Family History: States: Unknown Family Hx - Living Arrangements Living Arrangements: With Family - Social History Alcohol: None Drugs: Denies - Immunization History Hx Tetanus Toxoid Vaccination: No Hx Influenza Vaccination: No Hx Pneumococcal Vaccination: No - Home Medications Home Medications: Ambulatory Orders Medication Instructions Recorded Acetaminophen [Tylenol] 650 mg PO Q6 PRN 12/28/18 Ibuprofen [Motrin Tab] 400 mg PO Q8 PRN 12/28/18 Famotidine [Pepcid] 40 mg PO DAILY #30 tablet 02/05/19 - Allergies Allergies/Adverse Reactions: Allergies Allergy/AdvReac Type Severity Reaction Status Date / Time No Known Allergies Allergy Verified 12/28/18 15:36 Review of Systems ROS Statement: Except As Marked, All Systems Reviewed And Found Negative Constitutional: Positive for: Chills, Sweats. Negative for: Fever, Weakness, Malaise Gastrointestinal: Positive for: Nausea, Vomiting, Abdominal Pain, Diarrhea. Negative for: Constipation Genitourinary Female: Negative for: Dysuria Skin: Negative for: Rash Physical Exam - Reviewed Nursing Documentation Reviewed: Yes Vital Signs Reviewed: Yes - Physical Exam Appears: Positive for: Well, Non-toxic, No Acute Distress Head Exam: Positive for: ATRAUMATIC, NORMAL INSPECTION, NORMOCEPHALIC Skin: Positive for: Normal Color, Warm, DRY Eye Exam: Positive for: Normal appearance, PERRL ENT: Positive for: Normal ENT Inspection Neck: Positive for: Normal, Painless ROM Cardiovascular/Chest: Positive for: Regular Rate, Rhythm Respiratory: Positive for: CNT, Normal Breath Sounds Gastrointestinal/Abdominal: Positive for: Normal Exam, Bowel Sounds (hyperactive ), Soft, Tenderness (epigastric/ LUQ), Other (laproscopic incisions are healed no signs of infection, no induration). Negative for: Mass, Distended Back: Positive for: Normal Inspection Extremity: Positive for: Normal ROM Neurological/Psych: Positive for: Awake, Alert, Normal Tone, Oriented - Laboratory Results Result Diagrams: 02/05/19 13:50 02/05/19 13:50 Urine POC: Negative - ECG O2 Sat by Pulse Oximetry: 97 Pulse Ox Interpretation: Normal Medical Decision Making Medical Decision Making: --CBC --CMP --LIPASE --IV SALINE LOCK --PEPCID 20MG IV --CT ABD/PELVIS 1759: Patient re-evaluated at this , patient states she feels much better. Patient reports she was several drinks of tequila. Pain improved 2/10. Labs reviewed by me, noted slightly elevated LFT's. --CT abd/pelvis: poss biliary stones, no biliary dilation noted. --Patient will follow-up with GI --Clinical findings discussed with patient. Patient will be discharged home with rx for pepcid , follow -up with PMD and GI. Patient verbalizes understanding and agrees with plan. Disposition - Clinical Impression Clinical Impression: Abdominal cramping - Patient ED Disposition Is Patient to be Admitted: No Counseled Patient/Family Regarding: Diagnosis, Need For Followup, Rx Given - Disposition Referrals: Gerald Davies MD [Staff Provider] - Disposition: Routine/Home Disposition Time: 17:45 Condition: IMPROVED Prescriptions: Famotidine [Pepcid] 40 mg PO DAILY #30 tablet Instructions: Acute Abdomen (Belly Pain), Adult (DC), Nausea and Vomiting, Adult (DC) Forms: [facility] ED School/Work Excuse Print Language: TURKMEN - Pt Status Changed To: Hospital Disposition Of: Inpatient - Admit Certification Admit to Inpatient:: After my assessment, the patient will require hospitalization for at least two midnights. This is because of the severity of symptoms shown, intensity of services needed, and/or the medical risk in this patient being treated as an outpatient. - POA Present On Arrival: None
[2019-02-05 14:09] LABS: BASO % 0.4 % (0.0-2.0); EOS # 0.1 K/uL (0.0-0.7); EOS % 1.2 % (0.0-4.0); HEMOGLOBIN 13.3 g/dL (12.0-16.0); LYMPH # 3.9 K/uL (1.0-4.3); LYMPH % 39.4 % (20.0-40.0); MEAN CELL VOLUME 91.8 fl (81.0-99.0); MEAN CORPUSCULAR HEMOGLOBIN 30.9 pg (27.0-31.0); MEAN CORPUSCULAR HGB CONC 33.6 g/dL (33.0-37.0); MEAN PLATELET VOLUME 8.1 fl (7.2-11.7); MONO # 0.6 K/uL (0.0-0.8); MONO % 6.5 % (0.0-10.0); NEUT # 5.3 K/uL (1.8-7.0); NEUT % 52.5 % (50.0-75.0); RBC 4.32 Mil/uL (3.80-5.20); RED CELL DISTRIBUTION WIDTH 13.5 % (11.5-14.5)
[2019-02-05 14:12] LABS: SQUAMOUS EPITHIAL 1 /hpf (0-5); URINE BACTERIA RARE (<OCC); URINE BILIRUBIN NEGATIVE (NEGATIVE); URINE BLOOD MODERATE (NEGATIVE); URINE CLARITY CLEAR (Clear); URINE COLOR YELLOW (YELLOW); URINE GLUCOSE (UA) NEG (NEGATIVE); URINE LEUKOCYTE ESTERASE NEG Leu/uL (Negative); URINE PROTEIN NEGATIVE (NEGATIVE); URINE UROBILINOGEN 0.2-1.0 mg/dL (0.2-1.0)
[2019-02-05 14:18] LABS: ALB/GLOB RATIO 1.3 (1.0-2.1); ALBUMIN 4.8 g/dL (3.5-5.0); ALT/SGPT 81 U/L (9-52); AST/SGOT 127 U/L (14-36); BLOOD UREA NITROGEN 15 mg/dl (7-17); CALCIUM 9.7 mg/dL (8.4-10.2); GFR NON-AFRICAN AMERICAN > 60; LIPASE 163 U/L (23-300)
--- NOTE | 2019-02-05 14:32 | RAD ---
HISTORY: epigastric pain COMPARISON: Chest x-ray performed 10/10/17 TECHNIQUE: Chest PA and lateral, 2 views FINDINGS: LUNGS: No focal consolidation. Please note that chest x-ray has limited sensitivity for the detection of pulmonary masses. PLEURA: No significant pleural effusion identified. No definite pneumothorax . CARDIOVASCULAR: The cardiomediastinal silhouette appears within normal limits of size. No atherosclerotic calcification present. OSSEOUS STRUCTURES: No acute osseous abnormality identified. VISUALIZED UPPER ABDOMEN: Upper abdominal surgical clips. OTHER FINDINGS: None. IMPRESSION: No focal consolidation identified.
[2019-02-05 15:17] VITALS: RESP 18; TEMP 98.2
[2019-02-05] MEDS ORDERED: Sodium Chloride 0.9% 1,000 ML IV STA (15:21)
[2019-02-05] MEDS ORDERED: Sodium Chloride 0.9% 50 ML IV ONE (15:35)
[2019-02-05] MEDS ORDERED: Iohexol 300 100 ML IJ ONE (15:35)
--- NOTE | 2019-02-05 17:46 | CT ---
Date of service: 02/05/2019 PROCEDURE: CT Abdomen and Pelvis with contrast HISTORY: abd pain COMPARISON: Abdomen pelvis CT with contrast 12/28/2018. TECHNIQUE: Following oral and intravenous contrast administration, a CT examination of the abdomen and pelvis was performed from the domes of the diaphragms to the symphysis pubis with reformatted datasets provided not only axial but also sagittal and coronal series. Contrast dose: Omnipaque 300, 90 cc Radiation dose: Total exam DLP = 390.12 mGy-cm. This CT exam was performed using one or more of the following dose reduction techniques: Automated exposure control, adjustment of the mA and/or kV according to patient size, and/or use of iterative reconstruction technique. FINDINGS: LOWER THORAX: Unremarkable. LIVER: Interval diminished attenuation is appreciated throughout the liver compatible with hepatic steatosis with [id number] hepatomegaly appreciated. No hepatic mass. New medially is appreciated status post prior cholecystectomy. GALLBLADDER AND BILE DUCTS: Prior cholecystectomy is appreciated surgical clips again evident at the gallbladder fossa. A solitary linear hyperdensity is appreciated at the distal common bile duct suspicious for choledocholithiasis. No significant biliary tree dilatation identified within or extrinsic to the liver. PANCREAS: Unremarkable. No gross lesion or ductal dilatation. SPLEEN: Unremarkable. ADRENALS: Unremarkable. No mass. KIDNEYS AND URETERS: Unremarkable. No hydronephrosis. No solid mass. VASCULATURE: Unremarkable. No aortic aneurysm. No aortic atherosclerotic calcification or mural plaque present. BOWEL: Unremarkable. No obstruction. No gross mural thickening. APPENDIX: Normal appendix. PERITONEUM: Tiny umbilical hernia is identified containing only a limited amount of mesenteric fat without bowel involvement. Peritoneum unremarkable otherwise. Prior limited pelvic fluid has resolved.. No free air. LYMPH NODES: Unremarkable. No enlarged lymph nodes. BLADDER: Distended but otherwise unremarkable appearing urinary bladder. REPRODUCTIVE: Unremarkable. BONES: No acute fracture. OTHER FINDINGS: None. IMPRESSION: 1. Prior cholecystectomy again evident with no bili in the nondependent intrahepatic biliary tree. No significant dilatation of the intra or extrahepatic bile ducts although a linear density within the distal common bile duct may reflect choledocholithiasis. No pancreatic duct dilatation with pancreas unremarkable appearing throughout. 2. Interval hepatomegaly and hepatic steatosis. 3. No significant additional interval findings.
[2019-02-05 18:24] VITALS: BP 109/66; PULSE 81; O2SAT 100
== END 2019-02-05 18:30 | disposition home or self-care (01) ==
LOC: H.ER 12:44
DX: R10.9 Unspecified abdominal pain (principal); Z90.49 Acquired absence of other specified parts of digestive tract
CPT/HCPCS: 71046; 74177; 80053; 81003; 81025; 83690; 85025; 96361; 96374; 96375; 99284; J1885; J7030; Q9966; Q9967